=== PATIENT | male | born 1980 | race Caucasian/White ===

== ENCOUNTER 2021-02-18 14:57 | Outpatient (CLI) | payer MEDICARE, MEDICAID, SELFPAY ==
--- NOTE | ~2021-02-18 | XR_ITS ---
EXAMINATION: XR_CERV2-3V_CR DATE: 02/18/2021 15:23 INDICATION: Posterior neck pain. TECHNIQUE: 3 views of cervical spine were obtained. COMPARISON: None. FINDINGS: There is 6 degrees levocurvature of cervicothoracic spine. There is mild kyphosis of cervic al spine. Vertebral body heights are normal. There is 2 mm retrolisthesis of C5 on C6. There is mildl y decreased disc height at C4-C5 and C5-C6. The facet joints are unremarkable. There is mild central canal stenosis at C4-C5 and C5-C6. No prevertebral soft tissue swelling. IMPRESSION: 1. Mild cervical spondylosis. Reviewed, dictated and finalized at location A.
--- NOTE | 2021-02-18 15:15 | ECG_ITS ---
Measurements Intervals [place] Rate: 56 P: -7 TX: 119 QRS: 12 QRSD: 105 T: 25 QT: 394 QTc: 380 Interpretive Statements SINUS BRADYCARDIA WITH SHORT TX INTERVAL MINIMAL Q WAVES- HIGH LATERAL LEADS BORDERLINE ECG Electronically Signed On 02-18-2021 16:01:14 CDT by Julio Cesar Agosto D.O.
== END 2021-02-18 14:58 | disposition home or self-care (01) ==
PROVIDERS: PCP Nurse Practitioner Family; Visit Provider Nurse Practitioner Family
DX: M54.2 Cervicalgia (principal); R07.9 Chest pain, unspecified
CPT/HCPCS: 72040; 93005

== ENCOUNTER 2021-11-24 10:00 | Emergency (ER) | payer OTHER, SELFPAY ==
[2021-11-24 10:18] VITALS: BP 130/90; PULSE 90; RESP 16; TEMP 36.2; O2SAT 98
--- NOTE | 2021-11-24 10:58 | ED.SKABFB ---
HPI - Skin/Abscess/Foreign Bdy General Chief complaint: Skin/Abscess/Foreign Body Stated complaint: INFECTION IN TOES Time Seen by Provider: 11/24/21 10:05 Source: patient and RN notes reviewed Mode of arrival: ambulatory Limitations: no limitations History of Present Illness complaint: other (bilateral great toes redness posterior to nails.) Onset (ago): day(s) Tetanus up to date: unsure Location: L foot and R foot Severity: mild Severity scale (1-10): 2 Quality: aching and dull Pain Consistency: constant Relieving factors: none Exacerbating factors: none Treatments prior to arrival: none Related Data Allergies Allergy/AdvReac Type Severity Reaction Status Date / Time No Known Allergies Allergy Unknown Verified 11/24/21 10:21 Review of Systems Review of Systems: All systems reviewed & are unremarkable except as noted in HPI and below PMFSH Past Medical History Medical History (Updated 11/24/21 @ 11:24 by Janes Cohen MD) Bipolar 1 disorder Hypertension Paronychia of great toe Surgical History Surgical History (Updated 10/26/21 @ 09:55 by Haylee Adan) No history of previous surgery Social History Social History (Updated 10/26/21 @ 09:57 by Haylee Adan) Smoking status: Former smoker Additional smoking assessment comments: Quit cigarettes October 2020. 20pk year history. Alcohol intake: current Alcohol use details: Rare use of alcohol. Substance use: never Additional occupation/education comments: On Disability due to Biploar Disorder. Exam Const: General: no acute distress and alert Nutritional Appearance: well nourished Orientation/consciousness: patient oriented x3 Limitations: no limitations HENMT: Ears: external ears normal, TM's normal bilaterally and EAC's normal General nose exam: Normal external nose present and Normal nares present Face and sinus: sinuses nontender Mouth: Yes lip normal and Yes moist mucous membranes Eyes: Conjunctivae: conjunctivae normal Pupils: Equal, round and reactive pupils present EOM: EOMs intact bilaterally Neck: Neck: normal visual inspection Chest: Chest palpation & inspection: normal inspection of the chest Resp: Effort & Inspection: normal respiratory effort Auscultation: clear to auscultation bilaterally Cardio: Rate: regular rate Rhythm: regular rhythm GI: GI Palp: Yes Soft to palpation and No Tenderness to palpation present (GI) Auscultation: normal bowel sounds : General: Yes bladder normal to palpation and Yes no CVA tenderness Male General Exam: Yes normal external exam Back/Spine/Pelvis: Back: no CVA tenderness Skin: General skin exam: normal color Rashes: no rashes Neuro: General: patient oriented x3, moves all extremities, no meningeal signs, no focal motor deficits and CN's II-XI intact bilaterally Extrem: General: normal to inspection (bilateral firm redness of dorsal great toes nail posterior quick) and no pedal edema Psych: Appearance: grossly normal and well kempt Mental Status: mental status grossly normal Affect: normal affect Attitude: cooperative Thought content: Yes Normal thought content present Course Course Emergency Course: Pt was stable in the ED. Reevaluation(s) Date: 11/24/21 Time: 10:32 Vital Signs Vital signs: Vital Signs Temperature 36.2 C L 11/24/21 10:18 Pulse Rate 90 11/24/21 10:18 Respiratory Rate 16 11/24/21 10:18 Blood Pressure 130/90 11/24/21 10:18 Pulse Oximetry 98 11/24/21 10:18 Temperature 36.2 C L 11/24/21 10:18 Pulse Rate 90 11/24/21 10:18 Respiratory Rate 16 11/24/21 10:18 Blood Pressure 130/90 11/24/21 10:18 Pulse Oximetry 98 11/24/21 10:18 MDM - Skin/Abscess/Foreign Bdy Differential Diagnosis Differential diagnosis: Likely abscess of skin or subcutaneous tissue and cellulitis Medical Records Attestation: I reviewed the patient's medical records. Critical Care Time Critical Care Time Critical Care Time:
[2021-11-24] MEDS: IBUPROFEN 400 MG TABLET 800 MG PO (11:23)
[2021-11-24] MEDS: cefTRIAXone 1 GM VIAL IM (11:24)
[2021-11-24 11:39] VITALS: BP 123/71; PULSE 75; RESP 16; TEMP 36.8; O2SAT 98
== END 2021-11-24 11:41 | disposition home or self-care (01) ==
PROVIDERS: Emergency Provider Emergency Medicine; PCP Family Medicine
DX: L03.032 Cellulitis of left toe (principal); L03.031 Cellulitis of right toe
CPT/HCPCS: 96372; 99283; A9270; J0696

== ENCOUNTER 2021-12-04 11:05 | Emergency (ER) | payer OTHER, SELFPAY ==
[2021-12-04 11:21] VITALS: BP 135/88; PULSE 66; RESP 20; TEMP 36.6; O2SAT 95
--- NOTE | 2021-12-04 11:26 | ED.LOWEXIN ---
HPI - Extremity Injury (Lower) General Chief Complaint: Extremity Injury, Lower Stated Complaint: possible infection in L great toe Source: patient Mode of arrival: ambulatory Limitations: no limitations History of Present Illness HPI Narrative: this is a 41-year-old gentleman with history of a paronychia of his left large toe was seen in the emergency department approximately 10 days ago and was treated with oral antibiotics, today the patient bumped his toe and a and currently having extra bleeding and and surrounding erythema with no fever chills. Injury: Left: toes ( left great toe with surrounding erythema) Related Data Allergies Allergy/AdvReac Type Severity Reaction Status Date / Time No Known Allergies Allergy Unknown Verified 12/04/21 11:49 Review of Systems Review of Systems: All systems reviewed & are unremarkable except as noted in HPI and below PMFSH Past Medical History Medical History Bipolar 1 disorder Hypertension Paronychia of great toe Surgical History Surgical History No history of previous surgery Social History Social History Smoking status: Former smoker Additional smoking assessment comments: Quit cigarettes October 2020. 20pk year history. Alcohol intake: current Alcohol use details: Rare use of alcohol. Substance use: never Additional occupation/education comments: On Disability due to Biploar Disorder. Exam Const: General: no acute distress Orientation/consciousness: patient oriented x3 HENMT: Head: normal to inspection Eyes: Conjunctivae: conjunctivae normal Pupils: Equal, round and reactive pupils present Neck: Neck: normal visual inspection and no meningeal signs Chest: Chest palpation & inspection: normal inspection of the chest Resp: Effort & Inspection: normal respiratory effort Cardio: Rate: regular rate Rhythm: regular rhythm GI: GI Palp: Yes Soft to palpation Percussion: Yes normal to percussion Back/Spine/Pelvis: Back: no CVA tenderness Skin: Other: Area surrounding the left large toe with fluctuance with some bleeding and crusting and erythema. Neuro: General: patient oriented x3 and moves all extremities Extrem: General: normal to inspection and no pedal edema Psych: Mental Status: mental status grossly normal Affect: normal affect Course Course Emergency Course: The toe is some evaluated habits soaking, placing Betadine and small incision with an 11 blade, patient given a 1g IM dose of ceftriaxone and apply heat triple antibiotic ointment on the left large toe surrounding the nail bed. Vital Signs Vital signs: Vital Signs Temperature 36.6 C 12/04/21 11:21 Pulse Rate 66 12/04/21 11:21 Respiratory Rate 20 12/04/21 11:21 Blood Pressure 135/88 12/04/21 11:21 Pulse Oximetry 95 12/04/21 11:21 Temperature 36.6 C 12/04/21 11:21 Pulse Rate 66 12/04/21 11:21 Respiratory Rate 20 12/04/21 11:21 Blood Pressure 135/88 12/04/21 11:21 Pulse Oximetry 95 12/04/21 11:21 Critical Care Time Critical Care Time Critical Care Time: No Discharge Plan Discharge Clinical Impression: Paronychia of great toe of left foot Patient Disposition: Home, Self-Care Condition: Stable Instructions: Antibiotic Form, Paronychia (ED) Additional Instructions: take medicine as prescribed and keep regular follow-up appointments. Prescriptions: New amoxicillin-pot clavulanate [Augmentin] 500-125 mg tablet 1 tablet PO Q12H Qty: 20 RF: 0 mupirocin 2 % ointment 1 applic topical TID 7 Days Qty: 15 RF: 0 naproxen 500 mg tablet 500 mg PO BID PRN (Reason: pain) Qty: 20 RF: 0 No Action sulfamethoxazole-trimethoprim [Bactrim DS] 800-160 mg tablet 1 tablet PO Q12H Qty: 20 RF: 0 Follow-up/Referrals: Bruno Wright, [Prim
[2021-12-04] MEDS: cefTRIAXone 1 GM VIAL IM (11:37)
[2021-12-04] MEDS: NEOMYCIN/POLYMYXIN/BACITRACIN OINTMENT PACKET 1 PACKET TOPICAL (11:37)
[2021-12-04] MEDS: LIDOCAINE HCL 1% LOCAL INJ 20 ML VIAL (11:38)
[2021-12-04] MEDS: KETOROLAC (*BKC) 60 MG/2 ML VIAL IM (11:52)
[2021-12-04 12:05] VITALS: BP 136/73; PULSE 65; RESP 20; TEMP 36.7; O2SAT 98
== END 2021-12-04 12:08 | disposition home or self-care (01) ==
PROVIDERS: Emergency Provider Emergency Medicine; PCP Family Medicine
DX: L03.032 Cellulitis of left toe (principal)
CPT/HCPCS: 96372; 99284; J0696; J1885

== ENCOUNTER 2022-06-02 11:22 | Outpatient (CLI) | payer OTHER, SELFPAY ==
--- NOTE | ~2022-06-02 | MR_ITS ---
EXAMINATION: MR cervical spine wo con DATE: 06/02/2022 12:33 INDICATION: Neck pain. TECHNIQUE: Magnetic resonance imaging (MRI) of the cervical spine was performed without intravenous c ontrast. Sequences included sagittal T2-weighted FSE, sagittal T2-weighted FS FSE, sagittal T1-weight ed FSE, axial MERGE, and axial T2-weighted FSE. COMPARISON: Cervical spine radiographs 02/18/2021 FINDINGS: There is 2 mm retrolisthesis of C4 on C5 and C5 on C6. There is 5 degrees dextrocurvature o f cervical spine. Vertebral body heights are normal. There is mildly decreased disc height at C4-C5 a nd C5-C6. The spinal cord signal intensity is normal. The following disc levels are specifically disc ussed: C2-C3: The disc does not extend beyond the endplate margin. There is no uncovertebral joint osteoarth ritis. There is mild right facet joint osteoarthritis. There is no neural foraminal stenosis. There i s no central canal stenosis. C3-C4: There is a central protrusion. There is no uncovertebral joint osteoarthritis. There is mild l eft facet joint osteoarthritis. There is no neural foraminal stenosis. There is mild central canal st enosis. C4-C5: There is a central protrusion. There is mild bilateral uncovertebral joint osteoarthritis. The re is no facet joint osteoarthritis. There is mild right neural foraminal stenosis. There is mild shakeel tral canal stenosis. C5-C6: The disc is bulging. There is mild left uncovertebral joint osteoarthritis. There is mild bila teral facet joint osteoarthritis. There is mild left neural foraminal stenosis. There is mild central canal stenosis. C6-C7: There is a central protrusion. There is no uncovertebral joint osteoarthritis. There is mild b ilateral facet joint osteoarthritis. There is no neural foraminal stenosis. There is mild central can al stenosis. C7-T1: The disc does not extend beyond the endplate margin. There is no uncovertebral joint osteoarth ritis. There is mild right and moderate left facet joint osteoarthritis. There is no neural foraminal stenosis. There is no central canal stenosis. IMPRESSION: 1. Mild cervical spondylosis. Reviewed, dictated and finalized at location A.
== END 2022-06-02 11:23 | disposition home or self-care (01) ==
PROVIDERS: PCP Family Medicine; Visit Provider Nurse Practitioner Family
DX: M54.2 Cervicalgia (principal)
CPT/HCPCS: 72141

== ENCOUNTER 2022-06-08 14:41 | Outpatient (CLI) | payer OTHER, SELFPAY ==
[2022-06-08 14:54] LABS: Hematocrit 45.9 % (40.0-54.0); Hemoglobin 15.8 g/dL (14.0-18.0); Mean Corpuscular HGB Conc 34.4 g/dL (32.0-36.0); Mean Corpuscular Hemoglobin 30.6 pg (27.0-31.0); Mean Corpuscular Volume 88.8 fL (78.0-102.0); Mean Platelet Volume 10.1 fl (8.7-11.0); Platelet Count Result 332 K/mm3 (150-420); Red Blood Count 5.17 M/mm3 (4.70-6.10); Red Cell Distribution Width 13.4 % (11.6-14.4); White Blood Count 9.3 K/mm3 (4.8-10.8)
[2022-06-08 15:38] LABS: Alanine Aminotransferase 85 U/L (16-63); Albumin Level 3.9 g/dL (3.4-5.0); Alkaline Phosphatase 88 U/L (46-116); Anion Gap 8 mmol/L (8-16); Aspartate Amino Transferase 23 U/L (15-37); Bilirubin,Total 0.6 mg/dL (0.00-1.00); Blood Urea Nitrogen 15 mg/dL (7-18); Calcium 8.7 mg/dL (8.5-10.1); Carbon Dioxide 27 mmol/L (21-32); Chloride 103 mmol/L (98-108); Estimated Glomerular Filt Rate > 60; Folic Acid > 20.0 ng/mL (8.6->20); Glucose 291 mg/dL (70-99); Osmolality Calculated 297 mOsm/kg (285-295); Potassium 3.8 mmol/L (3.5-5.1); Sodium 138 mmol/L (136-145); Total Protein 7.4 g/dL (6.4-8.2); Vitamin B12 450 pg/mL (193-986)
[2022-06-12 19:00] LABS: Hepatitis A Antibody IgM Nonreactive; Hepatitis B Core Antibody Nonreactive (Nonreactive); Hepatitis B Surface Antigen Nonreactive (Nonreactive); Hepatitis C Signal to Cutoff 0.01 ratio (<1.00); Hepatitis C Virus Antibody Nonreactive (Nonreactive)
== END 2022-06-08 14:42 | disposition home or self-care (01) ==
LOC: CHSLAB 14:43
PROVIDERS: PCP Family Medicine; Visit Provider Family Medicine
DX: R53.83 Other fatigue (principal); E11.9 Type 2 diabetes mellitus without complications; E53.8 Deficiency of other specified B group vitamins; R74.01 Elevation of levels of liver transaminase levels
CPT/HCPCS: 36415; 80053; 80074; 82607; 82746; 84443; 85027

== ENCOUNTER 2022-09-12 08:42 | Outpatient (CLI) | payer OTHER, SELFPAY ==
--- NOTE | ~2022-09-12 | US_ITS ---
EXAMINATION: US abdomen limited DATE: 09/12/2022 09:04 INDICATION: Elevated liver enzymes TECHNIQUE: Multiple grayscale and Doppler ultrasound images of the abdomen were obtained. COMPARISON: None available FINDINGS: The head and body of the pancreas are normal. The pancreatic tail is obscured by bowel gas. The liver demonstrates increased echogenicity, heterogenous echotexture, and decreased through trans mission. No surface nodularity. Normal hepatopetal flow in the main portal vein. The gallbladder is n ormal with no abnormal wall thickening, pericholecystic fluid or stones. The normal common bile duct measures 3 mm. There was no sonographic Frankel sign. IMPRESSION: 1. Diffuse hepatic steatosis Reviewed, dictated and finalized at location B. [employer]
--- NOTE | 2022-09-12 08:50 | ECG_ITS ---
Measurements Intervals [place] Rate: 75 P: -6 ND: 122 QRS: 26 QRSD: 105 T: 1 QT: 369 QTc: 414 Interpretive Statements SINUS RHYTHM NORMAL ECG COMPARED TO ECG 02/18/2021 15:31:20 HEART RATE HAS INCREASED Electronically Signed On 09-12-2022 16:10:07 [employer] by Conor Serrano M.D.
--- NOTE | 2022-09-12 08:50 | EST_ITS ---
Patient Info Name: Praveen Myers Age: 41 years : 1980 Gender: Male Exam Date: 09/12/2022 9:50 AM Patient Status: Outpatient Admit Date: 09/12/2022 Staff Ordering Physician: Bruno Wright DO Attending Provider: Bruno Wright DO Exam Type: CA stress test treadmill Summary 1. 1. Negative Luís exercise stress test for ischemic ST changes by ECG criteria. 2. 2. Reduced functional capacity, achieving 9 METs of workload. 3. 3. Appropriate HR response to exercise. 4. 4. Appropriate HR recovery at 1 minute post exercise. 5. 5. No imaging with stress testing. Max Pred HR: 180 bpm Target HR: 153 bpm Termination Reason: Reached target heart rate or workload Cardiac Symptoms: Shortness of breath Resting ECG Sinus rhythm. Stress ECG No ST changes. Arrhythmias None. Report Signatures
[2022-09-12 10:51] LABS: Creatinine Urine 266.29 mg/dL (40-278); MALB Creatinine Ratio 14.3 mg/g (0-30); Microalbumin Urine Random 38.2 mg/L
== END 2022-09-12 08:43 | disposition home or self-care (01) ==
LOC: CHSIMG 08:44
PROVIDERS: PCP Family Medicine; Visit Provider Family Medicine
DX: E11.9 Type 2 diabetes mellitus without complications (principal); R74.01 Elevation of levels of liver transaminase levels; R68.89 Other general symptoms and signs; K76.0 Fatty (change of) liver, not elsewhere classified
CPT/HCPCS: 76705; 82043; 93005; 93017

== ENCOUNTER 2022-10-11 09:27 | Outpatient (RCR) | payer OTHER, SELFPAY ==
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
== END 2022-10-14 09:53 | disposition home or self-care (01) ==
LOC: CHSPT 09:27
PROVIDERS: PCP Family Medicine; Visit Provider Family Medicine
DX: R53.1 Weakness (principal)
CPT/HCPCS: 97014; 97110; 97161; G0283

== ENCOUNTER 2023-10-06 14:06 | Outpatient (CLI) | payer OTHER, SELFPAY | END 2023-10-06 14:07 | disposition home or self-care (01) | LOC: CHSLAB 14:12 | PROVIDERS: PCP Family Medicine; Visit Provider Nurse Practitioner Family | DX: M47.892 Other spondylosis, cervical region (principal); G89.4 Chronic pain syndrome; Z79.891 Long term (current) use of opiate analgesic | CPT/HCPCS: 36415; 80307; 80349; 80361; G0480 ==

== ENCOUNTER 2023-10-13 10:22 | Outpatient (CLI) | payer OTHER, SELFPAY ==
[2023-10-13 10:40] LABS: Basophils Absolute Auto 0.03 K/mm3 (0.00-0.10); Basophils Percent Auto 0.4 % (0.0-1.0); Eosinophils Absolute Auto 0.08 K/mm3 (0.02-0.50); Hematocrit 51.2 % (40.0-54.0); Immature Granulocyte Absolute 0.02 K/mm3 (0.00-0.00); Immature Granulocyte Percent A 0.2 % (0.0-0.0); Lymphocytes Absolute Auto 2.52 K/mm3 (1.10-4.50); Lymphocytes Percent Auto 30.3 % (18.0-42.0); Mean Corpuscular HGB Conc 33.2 g/dL (32.0-36.0); Mean Corpuscular Hemoglobin 29.3 pg (27.0-31.0); Mean Corpuscular Volume 88.1 fL (78.0-102.0); Mean Platelet Volume 9.3 fl (8.7-11.0); Monocytes Absolute Auto 0.51 K/mm3 (0.10-0.90); Monocytes Percent Auto 6.1 % (2.0-11.0); Neutrophils Absolute Auto 5.2 K/mm3 (1.7-7.2); Platelet Count Result 308 K/mm3 (150-420); Red Blood Count 5.81 M/mm3 (4.70-6.10); Red Cell Distribution Width 13.2 % (11.6-14.4); White Blood Count 8.3 K/mm3 (4.8-10.8)
[2023-10-13 10:48] LABS: Hemoglobin A1C 6.4 % (<5.7)
[2023-10-13 11:20] LABS: Alanine Aminotransferase 61 U/L (16-63); Albumin Level 4.2 g/dL (3.4-5.0); Alkaline Phosphatase 87 U/L (46-116); Anion Gap 12 mmol/L (8-16); Aspartate Amino Transferase 20 U/L (15-37); Bilirubin,Total 0.4 mg/dL (0.00-1.00); Blood Urea Nitrogen 15 mg/dL (7-18); Calcium 9.2 mg/dL (8.5-10.1); Carbon Dioxide 25 mmol/L (21-32); Chloride 103 mmol/L (98-108); Cholesterol 196 mg/dL (0-200); Estimated Glomerular Filt Rate > 60; Glucose 185 mg/dL (70-99); HDL Direct 48 mg/dL (40-60); LDL Cholesterol Calculated 117 mg/dL (<130); Osmolality Calculated 295 mOsm/kg (285-295); Potassium 4.3 mmol/L (3.5-5.1); Sodium 140 mmol/L (136-145); Total Protein 7.2 g/dL (6.4-8.2); Triglycerides 155 mg/dL (0-150)
== END 2023-10-13 10:23 | disposition home or self-care (01) ==
LOC: CHSLAB 10:23
PROVIDERS: PCP Family Medicine; Visit Provider Family Medicine
DX: E11.9 Type 2 diabetes mellitus without complications (principal); I10 Essential (primary) hypertension
CPT/HCPCS: 36415; 80053; 80061; 83036; 85025

== ENCOUNTER 2023-12-14 12:40 | Outpatient (CLI) | payer OTHER, SELFPAY ==
--- NOTE | 2023-12-14 12:53 | ECG_ITS ---
SEE SCANNED COPY FOR CONFIRMED REPORT MTDD
== END 2023-12-14 12:41 | disposition home or self-care (01) ==
PROVIDERS: PCP Family Medicine; Visit Provider Family Medicine
DX: I10 Essential (primary) hypertension (principal)
CPT/HCPCS: 93005

== ENCOUNTER 2023-12-14 13:29 | Emergency (ER) | payer OTHER, SELFPAY ==
[2023-12-14 13:30] VITALS: BP 156/90; PULSE 68; RESP 16; TEMP 37.1; O2SAT 98
--- NOTE | 2023-12-14 13:35 | ED.BACK ---
HPI - Back Pain/Injury General Chief Complaint: Back Pain/Injury Stated Complaint: back pain Time Seen by Provider: 12/14/23 13:30 Source: patient Mode of arrival: ambulatory Limitations: no limitations History of Present Illness HPI Narrative: this is a 43-year-old history of low wound does see his primary and pain management for his back pain and feels like he tweaked his lower back with no radiation of his pain no radiculopathy rates his pain about a 6/10 does have pain medication at home which he took and does not help. There is no saddle paresthesias no radiation of his pain no fever chills. MD elicited complaint: back pain Pertinent past history: prior back pain Onset (ago): hour(s) Timing: constant Severity: moderate Pain scale (0-10): 6 Similar Symptoms Previously: Yes Quality: dull and spasming Radiation: none Related Data Home Medications Medication Instructions Recorded Confirmed metformin 500 mg tablet 500 mg PO DAILY 10/13/23 12/14/23 celecoxib 200 mg capsule 200 mg PO DAILY 12/14/23 12/14/23 cyclobenzaprine 5 mg tablet 5 mg PO TID PRN Pain 12/14/23 12/14/23 tramadol 50 mg tablet 50 mg PO DAILY PRN Pain 12/14/23 12/14/23 Allergies Allergy/AdvReac Type Severity Reaction Status Date / Time No Known Allergies Allergy Unknown Verified 12/14/23 13:30 Review of Systems Review of Systems: All systems reviewed & are unremarkable except as noted in HPI and below PMFSH Past Medical History Medical History Bipolar 1 disorder Hypertension Paronychia of great toe Surgical History Surgical History No history of previous surgery Social History Social History Smoking status: Former smoker Additional smoking assessment comments: Quit cigarettes October 2020. 20pk year history. Alcohol intake: current Alcohol use details: Rare use of alcohol. Substance use: never Lack of Transportation: YES Lack of Food: Sometimes True Current Housing: I Have Housing Concerned About Future Housing: No Difficulty Paying Gas/Electric Bills: YES Difficulty Paying for Meds: No Currently Unemployed: Decline to Answer Education: High School Diploma/GED Difficulty w/ Childcare or Family Care: YES Occupation/Education: unemployed Additional occupation/education comments: On Disability due to Biploar Disorder. Exam Const: General: healthy appearing, no acute distress and alert Nutritional Appearance: well nourished Orientation/consciousness: patient oriented x3 Limitations: no limitations Neck: Neck: normal visual inspection, no lymphadenopathy and no meningeal signs Chest: Chest palpation & inspection: normal inspection of the chest Resp: Effort & Inspection: normal respiratory effort Auscultation: clear to auscultation bilaterally Cardio: Rate: regular rate Rhythm: regular rhythm GI: GI Palp: Yes Soft to palpation : General: Yes bladder normal to palpation Urinary Catheter: Urinary Catheter: patent and draining Skin: General skin exam: normal color Rashes: no rashes Neuro: General: patient oriented x3, moves all extremities and no meningeal signs Extrem: General: normal to inspection Other: If straight leg raising test Critical Care Time Critical Care Time Critical Care Time: No Discharge Plan Discharge Clinical Impression: Strain of lumbar region Qualifiers: Encounter type: initial encounter Qualified Code(s): S39.012A - Strain of muscle, fascia and tendon of lower back, initial encounter Patient Disposition: Home, Self-Care Condition: Stable Instructions: Antibiotic Form, Acute Low Back Pain (ED) Additional Instructions: advised patient to continue his current medical regimen for his lower back pain and and advised take prednisone daily x5 days and follow with primary and pain helen
[2023-12-14] MEDS: methylPREDNISolone ACETATE 40 MG/ML VIAL 80 MG IM (13:53)
[2023-12-14] MEDS: ORPHENADRINE CITRATE 30 MG/ML 2 ML VIAL 60 MG IM (13:53)
== END 2023-12-14 13:59 | disposition home or self-care (01) ==
LOC: CHSED 13:44
PROVIDERS: Emergency Provider Emergency Medicine; PCP Family Medicine
DX: S39.012A Strain of muscle, fascia and tendon of lower back, initial encounter (principal); X58.XXXA Exposure to other specified factors, initial encounter; I10 Essential (primary) hypertension; F31.9 Bipolar disorder, unspecified; Z79.84 Long term (current) use of oral hypoglycemic drugs; Z87.891 Personal history of nicotine dependence
CPT/HCPCS: 96372; 99284; J1010; J2360

== ENCOUNTER 2023-12-15 11:01 | Outpatient (CLI) | payer OTHER, SELFPAY ==
--- NOTE | 2023-12-18 11:39 | WPDHOLTEREM ---
Holter/Event Monitor Holter/Event Monitor Date of procedure: 12/15/23 Holter/Event Procedure: 48 Hr Holter Monitor Indications: Palpitations Conclusion: 1. 48 hour holter monitor on 12/15/23. 2. Underlying rhythm is sinus rhythm. HR range 38-162 bpm; average HR 88 bpm. HR at 38 bpm was at 08:45. HR at 162 bpm was at 18:51. 3. There are 32 premature supraventricular complexes and 4 supraventricular couplets. No supraventricular tachycardia. 4. There are 7 premature ventricular complexes. No ventricular tachycardia. 5. No sinoatrial or atrioventricular blocks. No significant pauses greater than 2 seconds. 6. Patient reports symptom of dizziness which demonstrate sinus tachycardia at 136 bpm.
== END 2023-12-15 11:02 | disposition home or self-care (01) ==
PROVIDERS: PCP Family Medicine; Visit Provider Family Medicine
DX: R00.2 Palpitations (principal)
CPT/HCPCS: 93225; 93226

== ENCOUNTER 2024-01-22 17:53 | Outpatient (CLI) | payer OTHER, SELFPAY ==
--- NOTE | ~2024-01-22 | XR_ITS ---
3 VIEWS LUMBAR SPINE Ordering provider: Krysta Galo, [employer] History: . LOW BACK PAIN . Comparison: None. FINDINGS: VERTEBRAL BODIES: No visible fracture or subluxation. DISK SPACES: Slight Narrowing of the disc L4-L5 and L5-S1. Facet joint disease is seen at the level o f L4-L5 and L5-S1. SOFT TISSUES: Normal. IMPRESSION: No acute osseous abnormality lumbar spine. Reviewed, dictated and finalized at location A.
== END 2024-01-22 17:54 | disposition home or self-care (01) ==
PROVIDERS: PCP Family Medicine; Visit Provider Nurse Practitioner Family
DX: M54.50 Low back pain, unspecified (principal)
CPT/HCPCS: 72100

== ENCOUNTER 2024-10-04 21:51 | Emergency (ER) | payer OTHER, SELFPAY ==
[2024-10-04 21:52] VITALS: BP 174/100; PULSE 111; RESP 22; TEMP 36.9
[2024-10-04] MEDS: ALPRAZolam (*CRX) 0.5 MG TABLET PO (22:05)
[2024-10-04 22:13] LABS: Amphetamine Screen Urine Negative (Negative); Barbiturate Screen Urine Negative (Negative); Benzodiazepines Screen Urine Negative (Negative); Cannabinoid Screen Urine Positive (Negative); Cocaine Screen Urine Negative (Negative); Methadone Screen Urine Negative (Negative); Opiate Screen Urine Negative (Negative); Phencyclidine Screen Urine Negative (Negative)
--- NOTE | 2024-10-04 22:42 | ED.GENADULT ---
HPI - General Adult General Chief complaint: Environmental Exposure Stated complaint: poss exposure Time Seen by Provider: 10/04/24 21:52 Source: patient Mode of arrival: ambulatory Limitations: no limitations History of Present Illness HPI narrative: patient is a 43-year-old male with possible gaseous exposure to methamphetamine this evening. He was having some wooziness and anxiety. Onset (ago): minute(s) ( 30) Location: mouth Radiation: non-radiation Severity: mild Severity scale (1-10): 3 Quality: burning Pain Consistency: intermittent Relieving factors: none Exacerbating factors: none Associated symptoms: denies other symptoms Treatments prior to arrival: none Related Data Home Medications ?Medication ?Instructions ?Recorded ?Confirmed ?Last Taken ?Type celecoxib 200 mg capsule 200 mg PO DAILY 12/14/23 07/10/24 Unknown History tramadol 50 mg tablet 50 mg PO DAILY PRN Pain 12/14/23 07/10/24 Unknown History baclofen 10 mg tablet 10 mg PO QHS 06/19/24 07/10/24 Unknown History Allergies Allergy/AdvReac Type Severity Reaction Status Date / Time No Known Allergies Allergy Unknown Verified 10/04/24 22:04 Review of Systems Review of Systems: All systems reviewed & are unremarkable except as noted in HPI and below Constitutional: Constitutional: Reports no additional constitutional complaints Eyes: Eyes: Reports no additional eye complaints ENT: Reports system reviewed and no additional complaints, except as documented Cardiovascular: Cardiovascular: Reports no additional cardiovascular complaints Respiratory: Respiratory: Reports no additional respiratory complaints Gastrointestinal: Gastrointestinal: Reports no additional gastrointestinal complaints Genitourinary: Genitourinary: Reports no additional male genitourinary complaints Musculoskeletal: Musculoskeletal: Reports no additional musculoskeletal complaints Integumentary/Breasts: Skin/Breast: Reports system reviewed and no additional complaints, except as docu Neurologic: Reports system reviewed and no additional complaints, except as documented Psychiatric: Psychiatric: Reports no additional psychiatric complaints Endocrine: Endocrine: Reports no additional endocrine complaints Hematologic/Lymphatic: Hematologic/Lymphatic: Reports no additional hematologic/lymphatic complaints Allergic/Immunologic: Allergic/Immunologic: Reports no additional allergic/immunologic complaints PMFSH Past Medical History Medical History Paronychia of great toe Bipolar 1 disorder Hypertension Surgical History Surgical History No history of previous surgery Social History Social History Smoking status: Former smoker Additional smoking assessment comments: Quit cigarettes October 2020. 20pk year history. Alcohol intake: current Alcohol use details: Rare use of alcohol. Substance use: never Lack of Transportation: YES Lack of Food: Sometimes True Current Housing: I Have Housing Concerned About Future Housing: No Difficulty Paying Gas/Electric Bills: YES Difficulty Paying for Meds: No Currently Unemployed: Decline to Answer Education: High School Diploma/GED Difficulty w/ Childcare or Family Care: YES Occupation/Education: unemployed Additional occupation/education comments: On Disability due to Biploar Disorder. Exam Const: General: cooperative, healthy appearing and comfortable HENMT: Head: normal to inspection, No palpable skull fracture present and normocephalic Eyes: General: appearance normal, both eyes and all related structures Visual Jackson: normal visual jackson by confrontation Alignment and Position: alignment normal Neck: Neck: normal visual inspection, full ROM and no lymphadenopathy Chest: Chest palpation & inspection: normal inspection of the chest and normal palpation of entire chest wall Resp: Effort & Inspection: normal respiratory effort, able to speak in complete sentences and normal respiratory pattern Auscultation: clear to auscultation bilaterally Cardio: Jugular venous distension: no JVD Palpation: normal PMI Rate: regular rate Rhythm: regular rhythm Heart sounds: S1 normal heart sound present and S2 normal heart sound present GI: Inspection: normal to inspection, no abdominal wall ecchymosis and no edema Back/Spine/Pelvis: Back: no CVA tenderness, No CVA tenderness, No mass and No erythema Skin: General skin exam: normal color, no rashes or lesions noted and elasticity normal Neuro: General: oriented to person, oriented to place, oriented to time, patient oriented x3, gait normal, tone normal and moves all extremities Extrem: General: normal to inspection, full ROM, capillary refill normal and normal exam except as noted Psych: Appearance: grossly normal, well kempt and not disheveled Mental Status: mental status grossly normal Course Vital Signs Vital signs: Vital Signs Temperature 36.9 C 10/04/24 21:52 Pulse Rate 111 H 10/04/24 21:52 Respiratory Rate 22 H 10/04/24 21:52 Blood Pressure 174/100 H 10/04/24 21:52 Oxygen Delivery Room Air 10/04/24 21:52 Temperature 36.9 C 10/04/24 21:52 Pulse Rate 111 H 10/04/24 21:52 Respiratory Rate 22 H 10/04/24 21:52 Blood Pressure 174/100 H 10/04/24 21:52 Oxygen Delivery Room Air 10/04/24 21:52 Medical Decision Making MDM Narrative Medical decision making narrative: patient is a 43-year-old male with possible exposure to methamphetamine this evening. He is having anxiety. We will give him a Xanax. We will do a drug screen. He is not driving. Vital Signs Vital Signs: Vital Signs Temperature 36.9 C 10/04/24 21:52 Pulse Rate 111 H 10/04/24 21:52 Respiratory Rate 22 H 10/04/24 21:52 Blood Pressure 174/100 H 10/04/24 21:52 Oxygen Delivery Room Air 10/04/24 21:52 Temperature 36.9 C 10/04/24 21:52 Pulse Rate 111 H 10/04/24 21:52 Respiratory Rate 22 H 10/04/24 21:52 Blood Pressure 174/100 H 10/04/24 21:52 Oxygen Delivery Room Air 10/04/24 21:52 Lab Data Lab results reviewed: Yes I reviewed the patient's lab results. Labs: Lab Results 10/04/24 Range/Units 22:02 Urine Opiates Screen Negative (Negative) Urine Methadone Screen Negative (Negative) Ur Barbiturates Screen Negative (Negative) Ur Phencyclidine Scrn Negative (Negative) Ur Amphetamine Screen Negative (Negative) U Benzodiazepines Scrn Negative (Negative) Urine Cocaine Screen Negative (Negative) U Cannabinoids Screen Positive A (Negative) Discharge Plan Discharge Clinical Impression: Inhalation of smoke, Anxiety Patient Disposition: Home, Self-Care Condition: Stable Instructions: Smoke Inhalation (ED), Anxiety (ED) Patient Language: Thai Prescriptions: New alprazolam [Xanax] 0.5 mg tablet 0.5 mg PO BID PRN (Reason: anxiety) Qty: 10 0RF Rx Instructions: 1/2-1 tab per dose No Action celecoxib 200 mg capsule 200 mg PO DAILY tramadol 50 mg tablet 50 mg PO DAILY PRN (Reason: Pain) baclofen 10 mg tablet 10 mg PO QHS (DME) blood-glucose meter Misc See Rx Instructions .Route Qty: 1 0RF Rx Instructions: Testing once daily. 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 Dx: E11.9 Farxiga 10 mg tablet See Rx Instructions .ROUTE .COMPLEX Qty: 90 2RF Dose Instruction: TAKE 1 TABLET BY MOUTH IN THE MORNING Rx Instructions: TAKE 1 TABLET BY MOUTH IN THE MORNING Follow-up/Referrals: Bruno Wright DO [Primary Care Provider] - Time of Disposition: 22:57
[2024-10-04 23:05] VITALS: BP 131/96; PULSE 69; RESP 18; O2SAT 95
== END 2024-10-04 23:05 | disposition home or self-care (01) ==
PROVIDERS: Emergency Provider Emergency Medicine; PCP Family Medicine
DX: T59.811A Toxic effect of smoke, accidental (unintentional), initial encounter (principal); F41.9 Anxiety disorder, unspecified; I10 Essential (primary) hypertension; Z87.891 Personal history of nicotine dependence
CPT/HCPCS: 80307; 99283; A9270